=== PATIENT | female | born 1970 | race Caucasian/White ===

== ENCOUNTER 2022-01-09 05:28 | Outpatient (CLI) | payer BC ==
[~2022-01-09] VITALS: Ht 167.7 cm; Wt 100.0 kg
[2022-01-09] MEDS ORDERED: BUDE10.2 IH (13:48)
[2022-01-09] MEDS ORDERED: FLUT9.9S NS (13:49)
[2022-01-09] MEDS ORDERED: LORA10CA PO (13:49)
[2022-01-09] MEDS ORDERED: ALBU1.25 INH (13:49)
== END 2022-01-09 14:00 | disposition home or self-care (01) ==
LOC: PREOP 05:28
PROVIDERS: ATTEND Otolaryngology Otolaryngology/Facial Plastic Surgery
DX: Z01.818 Encounter for other preprocedural examination (principal)

== ENCOUNTER 2022-01-16 06:06 | Day surgery (SDC) | payer BC ==
[2022-01-16] VITALS (10 sets, daily range): BP systolic 115–129; BP diastolic 57–77
[~2022-01-16] VITALS: Ht 167.1 cm; Wt 100.0 kg
[~2022-01-16 06:06] MED LIST: ALBU1.25 INH; BUDE10.2 IH; FLUT9.9S NS; LORA10CA PO
[2022-01-16] MEDS: LACTATED RINGERS 1,000 ML IV PRN ×2 (06:20→08:15)
[2022-01-16] MEDS ORDERED: HYDROCORTISONE 100 MG/2 ML (Solu-CORTEF) VIAL IV ONE (06:30)
[2022-01-16] MEDS ORDERED: AMPICILLIN/SULBACTAM INJECTION 1.5 GM in NS (IVPB) 100 ML IV ONE (06:30)
[2022-01-16] MEDS ORDERED: AMPICILL/SULB 1.5 GM VIAL (UNASYN) ONE (06:31)
[2022-01-16] MEDS ORDERED: HYDROCORTISONE 100 MG/2 ML (Solu-CORTEF) VIAL ONE (06:31)
[2022-01-16] MEDS ORDERED: NS (IVPB) 50 ML ONE (06:33)
[2022-01-16] MEDS ORDERED: PHENYLEPHRINE 0.5% NASAL SPR (NEO-SYNEPHRINE) REG ONE (06:43)
[2022-01-16] MEDS ORDERED: COCAINE HCL 4% 2 ML SYR ONE (06:43)
[2022-01-16] MEDS ORDERED: BSS 15 ML ONE (06:43)
[2022-01-16] MEDS ORDERED: LIDOCAINE/EPI 2% 1:200,00 (XYLOCAINE) 20 ML VIAL ONE (06:43)
--- NOTE | 2022-01-16 06:54 | Progress Note-Pre Operative ---
Pre-Operative Progress Note H&P Reviewed The H&P was reviewed, patient examined and no changes noted. Date Seen by Provider: Jan 16, 2022 Time Seen by Provider: : Date H&P Reviewed: Jan 16, 2022 Time H&P Reviewed: :30 Pre-Operative Diagnosis: Bilat Chronic Sionusitisi with polyps, Bilat hyper of Inf Turbs MANUEL WOODRUFF MD Jan 16, 2022 06:54
--- NOTE | 2022-01-16 06:55 | Progress Note-Post Operative ---
Post-Operative Progess Note Surgeon (s)/Fat Purification Worker (s) Surgeon MANUEL WOODRUFF MD Fat Purification Worker n/a Pre-Operative Diagnosis Bilat Chronic Sionusitisi with polyps, Bilat hyper of Inf Turbs Post-Operative Diagnosis same Post-Op Procedure Note Date of Procedure: Jan 16, 2022 Name of Procedure Performed: Bilat ESS, Bilat Red of Inf Turbs Description & Findings Description and Findings: n/a Anesthesia Type get Estimated Blood Loss minimal Packing none. Specimen(s) collected/removed Bilat Chronic Sinusitis MANUEL WOODRUFF MD Jan 16, 2022 06:55
[2022-01-16] MEDS ORDERED: ROCURONIUM 10 MG/ML 5 ML SYRINGE IV ONE (07:00)
[2022-01-16] MEDS ORDERED: PROMETHAZINE INJ 25 MG/ML (PHENERGAN) AMP IVP PRN (07:00)
[2022-01-16] MEDS ORDERED: LIDOCAINE PF 2% 5 ML (XYLOCAINE) VIAL ONE (07:00)
[2022-01-16] MEDS ORDERED: predniSONE 20 MG TAB PO ONE (07:00)
[2022-01-16] MEDS ORDERED: HYDROcodone/APAP 5 MG/325 MG (LORTAB) TAB PO PRN (07:00)
[2022-01-16] MEDS ORDERED: fentaNYL INJ 100 MCG/2 ML AMP ONE (07:00)
[2022-01-16] MEDS ORDERED: ONDANSETRON 4 MG/2 ML (SDV) Z0FRAN ONE (07:00)
[2022-01-16] MEDS ORDERED: proPOfol 200 MG/20 ML (DIPRIVAN) VIAL IV ONE (07:00)
[2022-01-16] MEDS ORDERED: D5 1/2 NS W/KCL 20 MEQ/L 1,000 ML IV SCH (07:00)
[2022-01-16] MEDS ORDERED: MIDAZOLAM 2 MG/2 ML (VERSED) VIAL ONE (07:01)
[2022-01-16] MEDS ORDERED: SEVOFLURANE (ULTANE) 15 ML INHAL SOLN ONE (08:47)
[2022-01-16] MEDS ORDERED: PRD20T PO (09:05)
[2022-01-16] MEDS ORDERED: AMOX-355 PO (09:05)
[2022-01-16] MEDS ORDERED: ACHD5005 PO (09:05)
[2022-01-16] MEDS ORDERED: morphine INJ 10 MG/ML 1ML (SYR OR VIAL) IVP ONE (09:15)
[2022-01-16] MEDS ORDERED: PROMETHAZINE INJ 25 MG/ML (PHENERGAN) AMP IVP ONE (09:15)
[2022-01-16] MEDS ORDERED: ONDANSETRON 4 MG/2 ML (SDV) Z0FRAN IVP PRN (09:15)
[2022-01-16] MEDS ORDERED: HYDROmorphone 2 MG/ML VIAL (DILAUDID) IV ONE (09:15)
[2022-01-16] MEDS ORDERED: MEPERIDINE (DEMEROL) INJ 50 MG/ML IVP ONE (09:15)
--- NOTE | 2022-01-16 09:41 | Anesthesia-General Post-Op ---
General Patient Condition Mental Status/LOC: Same as Preop Cardiovascular: Satisfactory Nausea/Vomiting: Absent Respiratory: Satisfactory Pain: Controlled Complications: Absent Post Op Complications Complications None Follow Up Care/Instructions Patient Instructions None needed. Anesthesia/Patient Condition Patient Condition Patient is doing well, no complaints, stable vital signs, no apparent adverse anesthesia problems. No complications reported per nursing. TRANG BROOKS CRNA Jan 16, 2022 09:41
[2022-01-16] MEDS ORDERED: predniSONE 20 MG TAB ONE (10:04)
== END 2022-01-16 10:55 | disposition home or self-care (01) ==
LOC: SDC 06:06
PROVIDERS: ATTEND Otolaryngology Otolaryngology/Facial Plastic Surgery
DX: J32.9 Chronic sinusitis, unspecified (principal); J33.0 Polyp of nasal cavity; J34.3 Hypertrophy of nasal turbinates; J32.4 Chronic pansinusitis; R09.81 Nasal congestion; Z79.899 Other long term (current) drug therapy
CPT/HCPCS: 84703; 87081